=== PATIENT | male | born 1960 | race African-American/Black ===

== ENCOUNTER 2019-02-23 02:18 | Emergency (ER) | payer SELFPAY ==
[2019-02-23] MEDS ORDERED: ALBUTEROL SULFATE 0.083% NEB 2.5 MG/3 ML AMPUL NEB ONE ×2 (03:00→04:03)
--- NOTE | 2019-02-23 03:02 | ER Document Report ---
ED General - General Chief Complaint: Breathing Difficulty Stated Complaint: DIFFICULTY BREATHING Time Seen by Provider: 02/23/19 02:54 Notes: Patient is a 58-year-old male who presents with complaint of coughing and difficulty breathing. No fevers. Finger difficulty breathing is been ongoing for approximately 2 weeks. Says it does come and go. Denies any chest pain associate with it. Says it does not seem to be worse with exertion. No swelling or edema into his legs. He denies her having this before. He is a smoker. His says he did have some wheezing last week but denies any wheezing since then. TRAVEL OUTSIDE OF THE [place] IN LAST 30 DAYS: No - Related Data Allergies/Adverse Reactions: Penicillins Allergy (Verified 02/23/19 02:22) Past Medical History - Social History Smoking Status: Current Every Day Smoker Frequency of alcohol use: None Drug Abuse: None Family History: Reviewed & Not Pertinent Review of Systems - Review of Systems Notes: My Normal Review Basic REVIEW OF SYSTEMS: CONSTITUTIONAL : Denies fever, chills, or sweats. Denies recent illness. EENT: Denies eye, ear, throat, or mouth pain or symptoms. Denies nasal or sinus congestion. CARDIOVASCULAR: Denies chest pain. RESPIRATORY: Occasional coughing. Some dyspnea. GASTROINTESTINAL: Denies abdominal pain. Denies nausea, vomiting, or diarrhea. MUSCULOSKELETAL: Denies neck or back pain or joint pain or swelling. SKIN: Denies rash or skin lesions. NEUROLOGICAL: Denies altered mental status or loss of consciousness. Denies headache. Denies weakness or paralysis or loss of use of either side. Denies problems with gait or speech. Denies sensory or motor loss. ALL OTHER SYSTEMS REVIEWED AND NEGATIVE. Physical Exam - Vital signs Vitals: Temp Pulse Resp BP Pulse Ox 97.9 F 69 16 111/73 99 02/23/19 02:24 02/23/19 02:24 02/23/19 02:24 02/23/19 02:24 02/23/19 02:24 - Notes Notes: General Appearance: Well nourished, alert, cooperative, no acute distress, no obvious discomfort. Vitals: reviewed, See vital signs table. Head: no swelling or tenderness to the head Eyes: PERRL, EOMI, Conjuctiva clear Mouth: No decreasd moisture Lungs: No wheezing, No rales, No rhonci, No accessory muscle use, good air exchange bilaterally. Heart: Normal rate, Regular rythm, No murmur, no rub Abdomen: Normal BS, soft, No rigidity, No abdominal tenderness, No guarding, no rebound, no abdominal masses Extremities: good pulses in all extremities, no swelling or tenderness in the extremities, no edema. Skin: warm, dry, appropriate color, no rash Neuro: speech clear, oriented x 3, normal affect, responds appropriately to questions. Course - Re-evaluation Re-evalutation: 02/23/19 04:03 Patient is feeling some improvement after the breathing treatment. We will give him 1 more breathing treatment to see if this makes him continue to feel better. Patient continues not show any signs of distress. Oxygenation continues to be normal. Workup looking at his heart is negative. 02/23/19 04:50 After breathing treatments patient says it gave him a little bit of relief. He looks well. Is in no distress. His vital signs are completely normal. Being that I did not hear a lot of wheezing I still do the workup looking is hard even though he does not have any chest pain. This was negative. The coronary disease is unlikely as the patient's dyspnea is not exertional and he does not having chest pain associate with it and his EKG and troponin are negative. I informed him that if he is not having improvement after 3 days despite the inhaler that he should return to the ER for reevaluation. He does not have a primary care doctor and that is why I am telling him to come back to the ER for reevaluation. Encouraged him return to ER immediately if he has chest pain, worsening difficulty breathing, fevers, or if he feels he is worsening in any way. Patient agrees with plan will be discharged home. Dictation of this chart was performed using voice recognition software; therefore, there may be some unintended grammatical errors. - Vital Signs Vital signs: Temp Pulse Resp BP Pulse Ox 97.9 F 69 20 110/92 H 97 02/23/19 02:24 02/23/19 02:24 02/23/19 04:31 02/23/19 04:31 02/23/19 04:31 - Laboratory Result Diagrams: 02/23/19 03:03 02/23/19 03:03 Laboratory results interpreted by me: 02/23/19 02/23/19 03:03 03:03 RBC 4.34 L MCV 99 H MCH 35.0 H RDW 14.5 H Carbon Dioxide 21 L - EKG Interpretation by Me Additional EKG results interpreted by me: 02/23/19 03:20 EKG is reviewed and interpreted by me. EKG shows sinus rhythm with a rate of [address] segment elevation or depression. No ischemic T wave inversions. AR interval, QRS duration, QT intervals are within normal range. No old EKG available for comparison. Discharge - Discharge Clinical Impression: Dyspnea Qualifiers: Dyspnea type: unspecified Qualified Code(s): R06.00 - Dyspnea, unspecified Condition: Good Disposition: HOME, SELF-CARE Additional Instructions: Workup looking at your heart was normal. Chest x-ray did not show any evidence of pneumonia. We will give you an inhaler to use over the next couple days. Use the inhaler as 2 puffs every 4 hours for cough. Please try and stop smoking. Hopefully this will help resolve your coughing and shortness of breath. Please return to the ER for reevaluation if not having improvement of your symptoms within 3 days. Return to the ER immediately if you have any chest pain, worsening difficulty breathing, fevers, or feel unwell. Forms: Return to Work
[2019-02-23 03:11] LABS: ABSOLUTE BASOPHILS # (AUTO) 0.1 10^3/uL (0.0-0.2); ABSOLUTE EOSINOPHILS # (AUTO) 0.2 10^3/uL (0.0-0.6); ABSOLUTE LYMPHOCYTES (AUTO) 2.9 10^3/uL (0.5-4.7); ABSOLUTE MONOCYTES (AUTO) 0.5 10^3/uL (0.1-1.4); ABSOLUTE NEUT (AUTO) 3.4 10^3/uL (1.7-8.2); BASOPHILS % (AUTO) 1.2 % (0-2); EOSINOPHILS % (AUTO) 2.8 % (0-6); HEMOGLOBIN 15.2 g/dL (13.5-17.0); LYMPHOCYTES % (AUTO) 41.1 % (13-45); MEAN CORPUSCULAR HGB CONC 35.4 g/dL (32.0-36.0); MEAN CORPUSCULAR VOLUME 99 fl (80-97); MONOCYTES % (AUTO) 6.7 % (3-13); PLATELET COUNT 303 10^3/uL (150-450); RED BLOOD COUNT 4.34 10^6/uL (4.35-5.55); RED CELL DISTRIBUTION WIDTH 14.5 % (11.5-14.0); SEGMENTED NEUTROPHILS % (AUTO) 48.2 % (42-78); TOTAL CELLS COUNTED % (AUTO) 100 %; WHITE BLOOD COUNT 7.1 10^3/uL (4.0-10.5)
[2019-02-23 03:31] LABS: ALANINE AMINOTRANSFERASE 21 U/L (21-72); ALBUMIN 4.3 g/dL (3.5-5.0); ALKALINE PHOSPHATASE 117 U/L (38-126); ANION GAP 13 (5-19); ASPARTATE AMINO TRANSFERASE 17 U/L (17-59); BILIRUBIN,DIRECT 0.3 mg/dL (0.0-0.4); BILIRUBIN,TOTAL 0.3 mg/dL (0.2-1.3); BLOOD UREA NITROGEN 19 mg/dL (7-20); CALCIUM 10.2 mg/dL (8.4-10.2); CARBON DIOXIDE 21 mmol/L (22-30); CHLORIDE 107 mmol/L (98-107); GLUCOSE 108 mg/dL (75-110); POTASSIUM 4.1 mmol/L (3.6-5.0); SODIUM 140.6 mmol/L (137-145); TOTAL PROTEIN 7.3 g/dL (6.3-8.2)
--- NOTE | 2019-02-23 03:47 | RADIOLOGY REPORT (SQ) ---
EXAM DESCRIPTION: XR CHEST 1 VIEW COMPLETED DATE/TME: 02/23/2019 03:00 CLINICAL HISTORY: 58 years, Male, dyspnea Comparison: None FINDINGS: No focal lung consolidation. No pleural effusion. No pneumothorax. Cardiac and mediastinal silhouette is unremarkable. No acute osseous abnormality. Soft tissues are unremarkable. IMPRESSION: No acute findings. No focal lung consolidation.
[2019-02-23 04:47] VITALS: BP 110/92
[2019-02-23] MEDS ORDERED: ALBUTEROL SULFATE HFA (90 MCG/PUFF) 8 GM MDI (1 MDI/ER DISP) IH ONE (04:47)
--- NOTE | 2019-02-23 07:00 | EKG REPORT ---
SEVERITY:- ABNORMAL ECG - SINUS ARRHYTHMIA, RATE 51-69 ANTERiOR INFARCT, AGE INDETERMINATE : Confirmed by: Jean Marie Magdaleno 23-Feb-2019 06:59:48
== END 2019-02-23 05:02 | disposition home or self-care (01) ==
LOC: ER 02:18
DX: R06.00 Dyspnea, unspecified (principal); R05 Cough; F17.200 Nicotine dependence, unspecified, uncomplicated; Z88.0 Allergy status to penicillin
CPT/HCPCS: 93005; 94640 ×2; 99285; 36415; 85025; 80053; 84484; 71045; 93010; J3490